=== PATIENT | male | born 1955 | race Caucasian/White ===

== ENCOUNTER 2021-06-28 08:53 | Emergency (ER) | payer MEDICARE, MEDICAID ==
--- NOTE | 2021-06-28 09:03 | EDM.PDOC ---
ED HPI GENERAL MEDICAL PROBLEM - General Chief Complaint: Abdominal Pain Stated Complaint: LOW HEMOGLOBIN Time Seen by Provider: 06/28/21 08:53 Source of Information: Reports: Patient, EMS, [facility] Records History Limitations: Reports: No Limitations - History of Present Illness INITIAL COMMENTS - FREE TEXT/NARRATIVE: Kostas, 65-year-old male, presents by the [facility] being transferred from long-term [facility] secondary of a low hemoglobin documented yesterday. He experienced a fall and was seen in the clinic with admission to the [facility] on 13 June undergoing a right partial hip replacement on the . He was discharged on the to [place] for rehabilitation strengthening modalities. His hemoglobin was tested last Thursday to be 9.1. He was 13 9 prior to surgery 9 3 post surgery, 9.1 on his evaluation a week ago and 5.0 yesterday. He states he has had some nausea but no vomiting and states he has had black tarry stool this morning specifically with possibly some in the past as well. He denies any fever, chills, shortness of breath, or chest pain. Feels some abdominal pressure only. Denies any cough or other contributing factors. He had a negative COVID-19 screen done while in the [facility]. All lab comparisons are found in [facility] 1 chart link. Skin excoriations were thought to be bedbugs versus scabies and was treated with systemic covering as well as while he is currently using permethrin lotion. This is being maintained for predominantly the itch. Onset: Gradual, Unknown/Unsure Duration: Day(s): Location: Reports: Abdomen Quality: Reports: Pressure Severity: Moderate Improves with: Reports: None Worsens with: Reports: Movement Context: Reports: Sick Contact Associated Symptoms: Reports: Nausea/Vomiting, Other (Tarry stool) Treatments QUALITY NURSE: Reports: Other (see below) ( all MAR meds) Middle Abdomen Pain Score (Numeric/FACES): 5 - Related Data Allergies Allergy/AdvReac Type Severity Reaction Status Date / Time No Known Allergies Allergy Verified 06/28/21 09:00 Home Meds: Home Meds Albuterol Sulfate [Albuterol Sulfate HFA] 8.5 gm INH Q4HR 06/28/21 [History] Aspirin [Aspirin EC] 81 mg PO DAILY 06/28/21 [History] Celecoxib [CeleBREX] 100 mg PO BID 06/28/21 [History] [place]/Min Oil/Josseline/Wool Alcoh [Eucerin Creme] 1 applic TOP BID 06/28/21 [History] Cyclobenzaprine [Flexeril] 10 mg PO TID PRN 06/28/21 [History] Docusate Sodium 100 mg PO BEDTIME PRN 06/28/21 [History] Ferrous Sulfate 325 mg PO DAILY 06/28/21 [History] Multivit-Min/Folic/Vit K/Lycop [Men's 50 Plus Multivitamin Tab] 1 each PO DAILY 06/28/21 [History] Tiotropium [Spiriva HandiHaler] 1 cap INH DAILY 06/28/21 [History] guaiFENesin [Mucinex] 600 mg PO BID 06/28/21 [History] hydrOXYzine HCL [Hydroxyzine HCl] 25 mg PO BID 06/28/21 [History] oxyCODONE HCl/Acetaminophen [Oxycodone-Acetaminophen 5-325] 5 - 325 mg PO Q6HR PRN 06/28/21 [History] Past Medical History HEENT History: Reports: Impaired Vision Cardiovascular History: Reports: High Cholesterol Respiratory History: Reports: COPD Gastrointestinal History: Reports: None Genitourinary History: Reports: None Musculoskeletal History: Reports: Arthritis Neurological History: Reports: None Psychiatric History: Reports: Addiction (Alcohol abuse), Depression Endocrine/Metabolic History: Reports: None, Hypokalemia, Other (See Below) ( hyponatremia) Hematologic History: Reports: Anemia Immunologic History: Reports: None Oncologic (Cancer) History: Reports: None Dermatologic History: Reports: Cellulitis - Infectious Disease History Infectious Disease History: Reports: None - Past Surgical History Musculoskeletal Surgical History: Reports: Hip Replacement (Rt partial 16 June 2021) - Past Imaging History Past Imaging History: Reports: Xray Social & Family History - Family History Family Medical History: No Pertinent Family History - Tobacco Use Tobacco Use Status *Q: Former Tobacco User Tobacco Use Within Last Twelve Months: Cigarettes ED ROS GENERAL - Review of Systems Review Of Systems: Comprehensive ROS is negative, except as noted in HPI. ED EXAM, GENERAL - Physical Exam Exam: See Below Free Text/Narrative:: Alert oriented conversive and in no distress. Mild pallor is noted with no cyanosis. PERRLA no icterus no injection. Neck is soft supple with no JVD nor carotid bruit appreciated. There is no rigidity demonstrated. Breath sounds are somewhat diminished and raspy with no evidence of wheezes nor crackles. Cardiac is S1-S2 rate of 80 with no appreciated murmur. Abdomen is soft no tenderness bowel sounds are present. I do not experience any significant hepatosplenomegaly. Rectal exam shows sphincter tone intact dark tacky smearing black stool present with odor of GI bleed. He moves his extremities about upon command. Pulses correlate with apical heart rate. Skin excoriations to the upper extremities with past history showing cellulitis versus scabies. I do not see any evidence of infection at this time only scabs and a drying crusting manner, free of pustule/vesicle. #1 Interpretation EKG Date: 06/28/21 Time: 10:34 Rhythm: NSR Rate (Beats/Min): 87 [place]: Normal P-Wave: Present QRS: Normal ST-T: Normal QT: Normal Comparison: NA - No Prior EKG Course - Vital Signs Last Recorded V/S: Last Vital Signs Temp 98.2 F 06/28/21 11:44 Pulse 86 06/28/21 11:44 Resp 18 06/28/21 11:44 BP 111/62 06/28/21 11:44 Pulse Ox 94 L 06/28/21 10:24 - Orders/Labs/Meds Orders: Active Orders 24 hr Category Date Time Status Peripheral IV Care [RC] . DIRECTED Care 06/28/21 09:33 Active Sodium Chloride 0.9% [Normal Saline] 1,000 ml Med 06/28/21 09:45 Active IV ASDIRECTED Sodium Chloride 0.9% [Saline Flush] Med 06/28/21 09:33 Active 10 ml FLUSH Q8HR PRN Peripheral IV Insertion Adult [OM.PC] Stat Oth 06/28/21 09:33 Ordered Transfuse Red Blood Cells [COMM] Stat Oth 06/28/21 13:52 Ordered EKG 12 Lead [EK] Stat Ther 06/28/21 10:23 Ordered Medication Orders Sodium Chloride (Normal Saline) 1,000 mls @ 100 mls/hr IV ASDIRECTED EMA Last Admin: 06/28/21 09:55 Dose: 100 mls/hr Documented by: NAIF Sodium Chloride (Sodium Chloride 0.9% 10 Ml Syringe) 10 ml FLUSH Q8HR PRN PRN Reason: keep vein open Labs: Laboratory Tests 06/28/21 06/28/21 06/28/21 Range/Units 09:05 09:05 09:05 WBC 10.15 H (5.00-10.00) 10^3/uL RBC 1.60 L (4.50-6.00) 10^6/uL Hgb 5.4 L* (13.0-17.0) g/dL Hct 16.1 L* (40.0-52.0) % MCV 100.6 H (82.0-92.0) fL MCH 33.8 H (27.0-31.0) pg MCHC 33.5 (32.0-36.0) g/dL RDW 19.5 H (11.5-14.5) % Plt Count 641 H (150-400) 10^3/uL MPV 8.8 (7.4-10.4) fL Immature Gran % (Auto) 0.4 (0.0-5.0) % Neut % (Auto) 72.0 H (50.0-70.0) % Lymph % (Auto) 14.7 L (20.0-40.0) % [place] % (Auto) 9.0 H (2.0-8.0) % Eos % (Auto) 2.5 (1.0-3.0) % Baso % (Auto) 1.4 H (0.0-1.0) % Neut # (Auto) 7.32 H (2.50-7.00) 10^3/uL Lymph # (Auto) 1.49 (1.00-4.00) 10^3/uL [place] # (Auto) 0.91 H (0.10-0.80) 10^3/uL Eos # (Auto) 0.25 (0.10-0.30) 10^3/uL Baso # (Auto) 0.14 H (0.00-0.10) 10^3/uL Immature Gran # (Auto) 0.04 (0.00-0.50) 10^3/uL Sodium 133 L (136-145) mmol/L Potassium 4.1 (3.5-5.1) mmol/L Chloride 97 L (98-107) mmol/L Carbon Dioxide 23.6 (21.0-32.0) mmol/L Anion Gap 16.5 H (5-15) mmol/L BUN 11 (7-18) mg/dL Creatinine 0.52 (0.51-1.17) mg/dL Est Cr Clr Drug Dosing 125.51 mL/min Estimated GFR (MDRD) > 60 mL/min Glucose 104 (70-140) mg/dL Lactic Acid 1.0 (0.4-2.0) mmol/L Calcium 8.3 L (8.7-10.3) mg/dL Total Bilirubin 0.4 (0.2-1.0) mg/dL AST 45 H (15-37) U/L ALT 45 (14-63) U/L Alkaline Phosphatase 80 (46-116) U/L Total Protein 6.2 L (6.4-8.2) g/dL Albumin 2.37 L (3.40-5.00) g/dL Blood Type Gel Antibody Screen Crossmatch 06/28/21 Range/Units 09:05 WBC (5.00-10.00) 10^3/uL RBC (4.50-6.00) 10^6/uL Hgb (13.0-17.0) g/dL Hct (40.0-52.0) % MCV (82.0-92.0) fL MCH (27.0-31.0) pg MCHC (32.0-36.0) g/dL RDW (11.5-14.5) % Plt Count (150-400) 10^3/uL MPV (7.4-10.4) fL Immature Gran % (Auto) (0.0-5.0) % Neut % (Auto) (50.0-70.0) % Lymph % (Auto) (20.0-40.0) % [place] % (Auto) (2.0-8.0) % Eos % (Auto) (1.0-3.0) % Baso % (Auto) (0.0-1.0) % Neut # (Auto) (2.50-7.00) 10^3/uL Lymph # (Auto) (1.00-4.00) 10^3/uL [place] # (Auto) (0.10-0.80) 10^3/uL Eos # (Auto) (0.10-0.30) 10^3/uL Baso # (Auto) (0.00-0.10) 10^3/uL Immature Gran # (Auto) (0.00-0.50) 10^3/uL Sodium (136-145) mmol/L Potassium (3.5-5.1) mmol/L Chloride (98-107) mmol/L Carbon Dioxide (21.0-32.0) mmol/L Anion Gap (5-15) mmol/L BUN (7-18) mg/dL Creatinine (0.51-1.17) mg/dL Est Cr Clr Drug Dosing mL/min Estimated GFR (MDRD) mL/min Glucose (70-140) mg/dL Lactic Acid (0.4-2.0) mmol/L Calcium (8.7-10.3) mg/dL Total Bilirubin (0.2-1.0) mg/dL AST (15-37) U/L ALT (14-63) U/L Alkaline Phosphatase (46-116) U/L Total Protein (6.4-8.2) g/dL Albumin (3.40-5.00) g/dL Blood Type B POSITIVE Gel Antibody Screen Negative Crossmatch See Detail Meds: Medications Generic Name Dose Route Start Last Admin Trade Name Freq PRN Reason Stop Dose Admin Sodium Chloride 1,000 mls @ 100 mls/hr 06/28/21 09:45 06/28/21 09:55 Normal Saline IV 100 mls/hr ASDIRECTED EMA Administration Sodium Chloride 10 ml 06/28/21 09:33 Sodium Chloride 0.9% 10 Ml Syringe FLUSH Q8HR PRN keep vein open Discontinued Medications Generic Name Dose Route Start Last Admin Trade Name Freq PRN Reason Stop Dose Admin Acetaminophen 1,000 mg 06/28/21 09:52 06/28/21 11:20 Acetaminophen 500 Mg Tab PO 06/28/21 09:53 1,000 mg ONETIME ONE Administration Diphenhydramine HCl 25 mg 06/28/21 09:52 06/28/21 11:20 Diphenhydramine 50 Mg/Ml Sdv IVPUSH 06/28/21 09:53 25 mg ONETIME ONE Administration Pantoprazole Sodium 80 mg/ 100 mls @ 200 mls/hr 06/28/21 09:40 06/28/21 09:54 Sodium Chloride IV 06/28/21 10:09 200 mls/hr .BOLUS ONE Administration Ondansetron HCl 8 mg 06/28/21 09:34 06/28/21 09:52 Ondansetron 4 Mg/2 Ml Sdv IVPUSH 06/28/21 09:35 8 mg ONETIME ONE Administration - Re-Assessments/Exams Free Text/Narrative Re-Assessment/Exam: 06/28/21 10:50 Kostas was notified of his anemia as well as his positive occult stool. At this time we discussed transfusion options. He denies previous transfusion that he is aware of at any time lifelong. I discussed with him that the blood is tested and carefully screened for any infectious processes as compatible with transfusion donation policies. I discussed with him the possibility of transfusion reaction which may include fever, rash, or orthostatic changes all of which are low probability but can occur. I did explain that we would pretreat prior to the infusion to reduce the risk. He is in agreements with receiving blood product that was recommended by receiving physician at in [place]. Free Text/Narrative Re-Assessment/Exam: 06/28/21 14:04 First unit transfused with no difficulties or concerns/reaction. Second unit being hung at this time and will be infused during transportation to [place] and will be infused during transportation to [place] to room [address] [place] [address] Departure - Departure Time of Disposition: 14:05 Disposition: DC/Tfer to Acute Hospital 02 Condition: Fair Clinical Impression: Occult blood positive stool, Skin abnormalities GI bleed Qualifiers: GI bleed type/associated pathology: unspecified gastrointestinal hemorrhage type Qualified Code(s): K92.2 - Gastrointestinal hemorrhage, unspecified - Discharge Information *PRESCRIPTION DRUG MONITORING PROGRAM REVIEWED*: Not Applicable *COPY OF PRESCRIPTION DRUG MONITORING REPORT IN PATIENT HAYDER: Not Applicable Referrals: Annette Hendrickson [employer]NA[employer] [Primary Care Provider] - Forms: ED Department Discharge, Interfacility Transfer SURAJ Sepsis Event Note (ED) - Focused Exam Vital Signs: Vital Signs Temp Temp Pulse Resp BP Pulse Ox 06/28/21 11:44 98.2 F 86 18 111/62 06/28/21 11:30 98.2 F 90 18 110/52 L 06/28/21 11:15 98.7 F 89 18 110/64 06/28/21 10:24 88 18 112/67 94 L 06/28/21 09:45 88 17 118/68 95 06/28/21 09:30 79 18 112/66 96 06/28/21 09:15 83 18 120/66 96 06/28/21 09:00 77 16 116/69 97 06/28/21 08:55 98.3 F 95 20 111/71 97 ED Communication - ED Communication Date/Time Date: 06/28/21 Time Called: 09:24 - Discussed Case With (1) Discussed Case With (1): Admitting Provider Person/s Notified (1): Vinod Horowitz ([place]) - Discussed Case With (2) Discussed Case With (2): Inpatient Cuff Knitter ([facility] occupational therapist rehab manager [phone]) - Problem List & Annotations (1) GI bleed SNOMED Code(s): 44210185 Code(s): K92.2 - GASTROINTESTINAL HEMORRHAGE, UNSPECIFIED Status: Acute Priority: High Current Visit: Yes Qualifiers: GI bleed type/associated pathology: unspecified gastrointestinal hemorrhage type Qualified Code(s): K92.2 - Gastrointestinal hemorrhage, unspecified (2) Skin abnormalities SNOMED Code(s): 78258052 Code(s): L98.9 - DISORDER OF THE SKIN AND SUBCUTANEOUS TISSUE, UNSPECIFIED Status: Chronic Priority: Medium Current Visit: Yes (3) Occult blood positive stool SNOMED Code(s): 02670735 Code(s): R19.5 - OTHER FECAL ABNORMALITIES Status: Acute Current Visit: Yes - Problem List Review Problem List Initiated/Reviewed/Updated: Yes - My Orders Last 24 Hours: My Active Orders 06/28/21 09:33 Peripheral IV Care [RC] . DIRECTED Sodium Chloride 0.9% [Saline Flush] 10 ml FLUSH Q8HR PRN Peripheral IV Insertion Adult [OM.PC] Stat 06/28/21 09:45 Sodium Chloride 0.9% [Normal Saline] 1,000 ml IV ASDIRECTED 06/28/21 10:23 EKG 12 Lead [EK] Stat 06/28/21 13:52 Transfuse Red Blood Cells [COMM] Stat - Assessment/Plan Last 24 Hours: My Active Orders 06/28/21 09:33 Peripheral IV Care [RC] . DIRECTED Sodium Chloride 0.9% [Saline Flush] 10 ml FLUSH Q8HR PRN Peripheral IV Insertion Adult [OM.PC] Stat 06/28/21 09:45 Sodium Chloride 0.9% [Normal Saline] 1,000 ml IV ASDIRECTED 06/28/21 10:23 EKG 12 Lead [EK] Stat 06/28/21 13:52 Transfuse Red Blood Cells [COMM] Stat
[2021-06-28] MEDS ORDERED: Sodium Chloride 0.9% 10 ML Syringe FLUSH PRN (09:33)
[2021-06-28] MEDS ORDERED: Ondansetron 4 MG/2 ML SDV IVPUSH ONE (09:34)
[2021-06-28] MEDS ORDERED: Pantoprazole 80 MG in Sodium Chloride 0.9% 100 ML IV ONE (09:40)
[2021-06-28] MEDS ORDERED: Sodium Chloride 0.9% 1,000 ML IV SCH (09:45)
[2021-06-28] MEDS ORDERED: Acetaminophen 500 MG Tab PO ONE (09:52)
[2021-06-28] MEDS ORDERED: diphenhydrAMINE 50 MG/ML SDV IVPUSH ONE (09:52)
[2021-06-28 10:08] LABS: ANION GAP 16.5 mmol/L (5-15); CHLORIDE,CL 97 mmol/L (98-107); SODIUM,NA 133 mmol/L (136-145)
--- NOTE | 2021-06-28 11:06 | CR ---
[id number] RAD/RAD Chest PA or AP 1V EXAM: FRONTAL CHEST INDICATION: Anemia and nicotine use. COMPARISON: None. DISCUSSION: Blunting of the lateral left costophrenic angle suggests a small effusion. Hyperinflation is compatible with chronic obstructive pulmonary disease. Volume loss left lung base. Probable prominent mesenteric and first left rib end, but superimposed nodule not excluded. Normal heart size. Chronic left rib fractures. IMPRESSION: 1. Small left pleural effusion with associated left base atelectasis. 2. Prominent first rib end versus left upper lobe nodule. Chest CT with contrast is suggested. Keo Pennington MD 06/28/21 1938 Thank you for allowing us to participate in the care of your patient.
== END 2021-06-28 14:30 ==
LOC: KA.ED 08:53
DX: K92.2 Gastrointestinal hemorrhage, unspecified (principal); K92.1 Melena; L98.8 Other specified disorders of the skin and subcutaneous tissue; E78.00 Pure hypercholesterolemia, unspecified; J44.9 Chronic obstructive pulmonary disease, unspecified; Z79.82 Long term (current) use of aspirin; Z79.899 Other long term (current) drug therapy; Z87.891 Personal history of nicotine dependence
CPT/HCPCS: 36415; 36430; 71045; 80053; 82270; 83605; 85025; 86850; 86900; 86901; 86920; 86922; 93005; 96365; 96375; 99284; 99285-25; A9270-GY; C9113; J1200; J2405; J7030; P9016

== ENCOUNTER 2025-03-16 10:54 | Emergency (ER) | payer MEDICAID, MEDICARE | END 2025-03-16 11:40 | disposition home or self-care (01) | LOC: KA.ED 10:54 | DX: L20.9 Atopic dermatitis, unspecified (principal); J44.9 Chronic obstructive pulmonary disease, unspecified; E78.00 Pure hypercholesterolemia, unspecified; Z79.899 Other long term (current) drug therapy; Z79.82 Long term (current) use of aspirin | CPT/HCPCS: 73130-LT; 73130-RT; 82947; 99283 ==